=== PATIENT | male | born 1935 | race Two or more races ===

== ENCOUNTER 2024-09-12 16:56 | Inpatient (IN) | payer MEDICARE, MEDICAID ==
[~2024-09-12] VITALS: Ht 167.6 cm; Wt 65.2 kg
--- NOTE | 2024-09-12 17:56 | DVH ---
EXAM: XY L HIP COMPLETE XRAY CLINICAL HISTORY: fall COMPARISON: None TECHNIQUE: XY L HIP COMPLETE XRAY Findings/Impression: 2 views of the left hip with frontal view of the pelvis. There is no evidence of an acute fracture, dislocation, blastic, or lytic lesions. No radiopaque foreign bodies. No joint effusion or superficial soft tissue abnormalities.
--- NOTE | 2024-09-12 17:57 | DVH ---
EXAM: XY CHEST PORTABLE TECHNIQUE: Single frontal chest radiograph CLINICAL HISTORY: fall COMPARISON: None Findings/Impression: Frontal chest radiograph demonstrates no acute osseous or superficial soft tissue abnormalities. Recovery Engineer piter right rib fracuture deformities. The trachea is midline. The cardiac silhouette and mediastinum are within normal limits. No pneumothorax, pleural effusions, or consolidations.
--- NOTE | 2024-09-12 17:59 | ED.PDOC ---
Musculoskeletal HPI Comments 89y M who presents to the ED via EMS for fall injury. Per EMS, pt was standing and talking with family earlier this afternoon and states while pt was holding onto railing, pt slipped and fell to the floor. Pt fell on the L side of his hip to break his fall and states he did not lose consciousness during fall. Pt states since fall, he was able to get up and go to dinner table to eat. Pt after dinner, pt was unable to get up from sitting position and started to complain of L hip pain and EMS came to the scene. EMS states pt had stable vitals upon arrival and alert and oriented x 4. EMS states pt refused Tylenol prior to ED arrival. Pt otherwise denies any other symptoms at this time. Chief Complaint: Fall Injury Time Seen by MD: 17:43 Primary Care Provider: OO Reviewed Notes: Track Rider Notes, Medications, Allergies Allergies: Coded Allergies: NO KNOWN ALLERGIES (Unverified , 09/12/24) Information Source: Patient, Relative, Emergency Med Personnel Mode of Arrival: EMS Brought in by: EMS Location: Left Extremity Location: Hip Timing: Minutes, Hours Prehospital treatment: None Severity: Moderate Able to Move Extremity: No Bear Weight: No Pain: Moderate Mechanism: Spontaneous Circumstances: Fall Onset of Symptoms: Spontaneous, After Trauma Symptoms: Pain DVT Risk Factors: NONE Last Tetanus: Unknown Associated signs and symptoms: Hip pain Past Medical History PAST MEDICAL HISTORY: Arthritis, [place] Surgical History: Hernia Repair, PTCA Family History Family History: Family hx of heart nick Social History Smoker: Non-Smoker Alcohol: Denies ETOH Use Drugs: Denies Drug Use Lives In: Home Constitutional: denies: chills, diaphoresis, fatigue, fever, malaise, sweats, weakness, others EENTM: denies: blurred vision, double vision, ear bleeding, ear discharge, ear drainage, ear pain, ear ringing, eye pain, eye redness, hearing loss, mouth pain, mouth swelling, nasal discharge, nose bleeding, nose congestion, nose pain, photophobia, tearing, throat pain, throat swelling, voice changes, others Respiratory: denies: cough, hemoptysis, orthopnea, SOB at rest, shortness of breath, SOB with excertion, stridor, wheezing, others Cardiovascular: denies: chest pain, dizzy spells, diaphoresis, Dyspnea on exertion, edema, irregular heart beat, left arm pain, lightheadedness, palpitations, PND, syncope, others Gastrointestinal: denies: abdomen distended, abdominal pain, blood streaked bowels, constipated, diarrhea, dysphagia, difficulty swallowing, hematemesis, m dhruv, nausea, poor appetite, poor fluid intake, rectal bleeding, rectal pain, vomiting, others Genitourinary: denies: burning, dysuria, flank pain, frequency, hematuria, incontinence, penile discharge, penile sore, pain, testicle pain, testicle swelling, urgency, others Neurological: denies: dizziness, fainting, headache, left sided numbness, left sided weakness, numbness, paresthesia, pre-existing deficit, right sided numbness, right sided weakness, seizure, speech problems, tingling, tremors, weakness, others Musculoskeletal: reports: joint pain; denies: back pain, gout, joint swelling, muscle pain, muscle stiffness, neck pain, others Integumetry: denies: bruises, change in color, change in hair/nails, dryness, laceration, lesions, lumps, rash, wounds, others Allergic/Immunocompromised: denies: Difficulty Healing, Frequent Infections, Hives, Itching, others Hematologic/Lymphatic: denies: anemia, blood clots, easy bleeding, easy bruising, swollen glands, others Endocrine: denies: excessive hunger, excessive sweating, excessive thirst, excessive urination, flushing, intolerance to cold, intolerance to heat, unexplained weight gain, unexplained weight loss, others Psychiatric: denies: anxiety, bipolar disorder, depression, hopeless, panic disorder, schizophrenia, sleepless, suicidal, others All Other Systems: Reviewed and Negative Physical Exam General Appearance: Moderate Distress HEENT: Normal ENT Inspection, Pharynx Normal, TMs Normal Neck: Full Range of Motion, Non-Tender, Normal, Normal Inspection Respiratory: Chest Non-Tender, Lungs Clear, No Accessory Muscle Use, No R espiratory Distress, Normal Breath Sounds Cardiovascular: No Edema, No JVD, No Murmur, No Gallop, Normal Peripheral Pulses, Regular Rate/Rhythm Breast Exam: Deferred Gastrointestinal: No Organomegaly, Non Tender, No Pulsatile Mass, Normal Bowel Sounds, Soft Genitalia: Deferred Pelvic: Deferred Rectal: Deferred Extremities: No calf tenderness, Normal capillary refill, Normal inspection, Normal range of motion, Non-tender, No pedal edema Musculoskeletal : Location: Bilateral Extremity Location: Other (Pelvis tenderness) Apperance: Limited ROM, Tenderness: Moderate Neurologic: Alert, communications attendant II-XII nml as Tested, No Motor Deficits, Normal Affect, Normal Mood, No Sensory Deficits Cerebellar Function: Normal Reflexes: Normal Skin: Dry, Normal Color, Warm Lymphatic: No Adenopathy Was a procedure done? Was a procedure done?: No Differential Diagnosis EXT Differential Diagnosis: Fracture, Sprain, Dislocation, DJD, Contusion, Strain, Rheumatoid, Arthritis X-Ray, Labs, Meds, VS Vital Signs Date Time Temp Pulse Resp B/P (MAP) Pulse Ox O2 Delivery O2 Flow Rate FiO2 09/12/24 17:16 98.1 75 20 156/80 (105) 96 Lab Test 09/12/24 19:58 09/12/24 17:50 Range/Units Urine Color Pending Urine Clarity Pending Urine pH Pending Urine Specific [place] Pending Urine Protein Pending Urine Ketones Pending Urine Blood Pending Urine Nitrite Pending Urine Bilirubin Pending Urine Urobilinogen Pending Urine Leukocyte Esterase Pending Urine RBC Pending Urine Microscopic WBC Pending Urine Squamous Epithelial Cells Pending Urine Bacteria Pending Urine Glucose Pending White Blood Count 12.0 H 4.4-10.8 10^3/uL Red Blood Count 4.19 L 4.5-5.90 10^6/uL Hemoglobin 12.9 L 13.5-17.5 g/dL Hematocrit 39.7 L 41.0-53.0 % Mean Corpuscular Volume 94.8 80.0-100.0 fL Mean Corpuscular Hemoglobin 30.7 28.0-32.0 pg Mean Corpuscular Hemoglobin Concent 32.4 32.0-36.0 g/dL Red Cell Distribution Width 15.6 H 11.8-14.3 % Platelet Count 143 140-450 10^3/uL Mean Platelet Volume 11.0 H 6.9-10.8 fL Neutrophils (%) (Auto) 75.9 37.0-80.0 % Lymphocytes (%) (Auto) 13.5 10.0-50.0 % Monocytes (%) (Auto) 8.0 0.0-12.0 % Eosinophils (%) (Auto) 2.4 0.0-7.0 % Basophils (%) (Auto) 0.2 0.0-2.0 % Neutrophils # (Auto) 9.1 H 1.6-8.6 10 ^3/uL Lymphocytes # (Auto) 1.6 0.4-5.4 10 ^3/uL Monocytes # (Auto) 1.0 0-1.3 10 ^3/uL Eosinophils # (Auto) 0.3 0-0.8 10 ^3/uL Basophils # (Auto) 0 0-0.2 10 ^3/uL Nucleated Red Blood Cells 0.1 % Prothrombin Time 11.4 9.3-11.8 sec Prothrombin Time INR 1.08 0.9-1.15 Activated Partial Thromboplast Time 26.9 24.5-34.5 SEC Sodium Level 137 136-145 mmol/L Potassium Level 4.6 3.5-5.1 mmol/L Chloride Level 102 98-107 mmol/L Carbon Dioxide Level 28 20-31 mmol/L Anion Gap 7 5-15 Blood Urea Nitrogen 8 L 9-23 mg/dL Creatinine 1.00 0.700-1.30 mg/dL Glomerular Filtration Rate Calc 72 >90 mL/min BUN/Creatinine Ratio 8.0 L 10.0-20.0 Serum Glucose 123 H 74-106 mg/dL Calcium Level 9.6 8.7-10.4 mg/dL EXAM: XY L HIP COMPLETE XRAY Findings/Impression: 2 views of the left hip with frontal view of the pelvis. There is no evidence of an acute fracture, dislocation, blastic, or lytic lesions. No radiopaque foreign bodies. No joint effusion or superficial soft tissue abnormalities. EXAM: XY CHEST PORTABLE Findings/Impression: Frontal chest radiograph demonstrates no acute osseous or superficial soft tissue abnormalities. Chronic right rib fracuture deformities. The trachea is midline. The cardiac silhouette and mediastinum are within normal limits. No pneumothorax, pleural effusions, or consolidations. CT scan of the pelvis shows: IMPRESSION: 1. Minimally displaced fracture through the superior portion of the left acetabulum and inferior pubic ramus on the left. All CT scans at this medical facility are performed using dose modulation techniques as appropriate to a performed exam including the following: Automated exposure control was utilized; adjustment of the MA and/or KV according to patient size; and use of iterative reconstruction technique. HS:Y At this time, the patient was being admitted to the hospitalist The CBC shows an elevated white blood cell count of 12.0 The chemistry panel is within normal limits At this time, the patient was being admitted to the hospitalist Images Reviewed?: Images reviewed and evaluated by me Time of 1ST Reevaluation: 16:15 Reevaluation 1ST: Unchanged Patient Education/Counseling: Diagnosis, Treatment Family Education/Counseling: Diagnosis, Treatment Additional Information -Reviewed patient's previous visit(s): - The following tests were ordered, and results were reviewed by me:cbc,chest x-ray, ptptt, ua, bmp, ekg x1, L hip x-ray - Additional information was gathered from interviewing the following independent Historian: EMS - I reviewed and agreed with the following test results read by other provider: radiologist - I discussed treatments and results with medical personnel and: patient and family Comprehensive systems review obtained and negative except for what is stated in the HPI. Departure 1 Departure Time of Disposition: 20:36 Impression: Primary Impression: History of fall Additional Impression: Pelvic fracture Qualified Codes: S32.402A - Unspecified fracture of left acetabulum, initial encounter for closed fracture Disposition: ADMITTED INPATIENT Admit to: Med Surg Condition: Fair Critical Care Note Critical Care Time?: No Stability Stability form required: Yes Unstable for transfer: ED Physician Assesment (Clinical assesment) Heart Score Heart Score: Heart Score Response (Comments) Value History N/A 0 EKG N/A 0 Age N/A 0 Risk Factors N/A 0 Troponin N/A 0 Total 0 I personally scribed for RONNA AUGUSTE MD ([email or web address]) on 09/12/24 at 17:59. Electronically submitted by Lois Jay ([email or web address]). I personally scribed for RONNA AUGUSTE MD ([email or web address]) on 09/12/24 at 18:38. Electronically submitted by Lois Jay ([email or web address]). I personally scribed for RONNA AUGUSTE MD ([email or web address]) on 09/12/24 at 18:39. Electronically submitted by Lois TORRES). RONNA AUGUSTE MD Sep 12, 2024 17:59
[2024-09-12 18:26] LABS: Basophils # (auto) 0 10 ^3/uL (0-0.2); Basophils % (auto) 0.2 % (0.0-2.0); Eosinophils # (auto) 0.3 10 ^3/uL (0-0.8); Eosinophils % (auto) 2.4 % (0.0-7.0); Hematocrit 39.7 % (41.0-53.0); Hemoglobin 12.9 g/dL (13.5-17.5); Lymphocytes # (auto) 1.6 10 ^3/uL (0.4-5.4); Lymphocytes % (auto) 13.5 % (10.0-50.0); Mean Corpuscular Hemoglobin 30.7 pg (28.0-32.0); Mean Corpuscular Hgb Conc. 32.4 g/dL (32.0-36.0); Mean Corpuscular Volume 94.8 fL (80.0-100.0); Neutrophils # (auto) 9.1 10 ^3/uL (1.6-8.6); Neutrophils % (auto) 75.9 % (37.0-80.0); Nucleated Red Blood Cells % 0.1 %; Platelet Count (auto) 143 10^3/uL (140-450); Red Blood Cells 4.19 10^6/uL (4.5-5.90); Red Cell Distribution Width 15.6 % (11.8-14.3)
[2024-09-12 18:36] LABS: Chloride 102 mmol/L (98-107); Potassium 4.6 mmol/L (3.5-5.1); Sodium 137 mmol/L (136-145)
[2024-09-12 18:37] LABS: Anion Gap 7 (5-15); Calcium 9.6 mg/dL (8.7-10.4); Carbon Dioxide 28 mmol/L (20-31)
[2024-09-12 18:43] LABS: Blood Urea Nitrogen 8 mg/dL (9-23); Glucose 123 mg/dL (74-106)
[2024-09-12 19:20] LABS: INR 1.08 (0.9-1.15); Partial Thromboplastin Time 26.9 SEC (24.5-34.5); Prothrombin Time 11.4 sec (9.3-11.8)
--- NOTE | 2024-09-12 20:19 | DVH ---
Exam: CT PELVIS WO CONTRAST History: fall Comparison Study: None available at time of dictation. Technique: Multidetector CT of the pelvis was performed from iliac crests to pubic symphysis after th e administration of intravenous contrast was administered during this examination. Portal venous imag ing was obtained. Axial, coronal and sagittal multiplanar reformats were performed by the technologis t on a separate workstation. Radiation Dose : CT Dose: CTDI volume is 9.51 mGy. Dose-length product is 338.27 mGy*cm Findings: Visualized bowel: No bowel wall thickening or dilatation. Ascites: Absent Lymphadenopathy: No pelvic or mesenteric lymphadenopathy. Vasculature: The visualized abdominal aorta is normal in size and caliber. Abdominal and pelvic vesse ls demonstrate normal enhancement. Pelvic Organs: Unremarkable Musculoskeletal: Minimally displaced fracture of the superior portion of the left acetabulum and the inferior pubic ramus on the left. Bladder: Unremarkable Soft tissues: Unremarkable. IMPRESSION: 1. Minimally displaced fracture through the superior portion of the left acetabulum and inferior pubi c ramus on the left. All CT scans at this medical facility are performed using dose modulation techniques as appropriate t o a performed exam including the following: Automated exposure control was utilized; adjustment of th e MA and/or KV according to patient size; and use of iterative reconstruction technique. HS:Y
[2024-09-12 20:38] LABS: Urine Bacteria FEW /hpf (None Seen); Urine Blood Negative /uL (Negative); Urine Clarity Clear (Clear); Urine Color Light-Yellow (Yellow); Urine Protein, UAD Negative (Negative); Urine Specific Gravity 1.009 (1.001-1.035); Urine Squamous Epithelial Cell FEW /hpf (<5); Urine Urobilinogen Normal (Negative); Urine WBC 153 /HPF (0-3); Urine pH 5.5 (5.0-9.0)
[2024-09-12 21:59] VITALS: PULSE 76; RESP 18; O2SAT 99
[2024-09-12] MEDS: ONDANSETRON HCL 4 MG/2 ML VIAL IV ONE (22:07)
[2024-09-12] MEDS: MORPHINE SULFATE 4 MG/ML SYR/VIAL IV ONE (22:09)
[2024-09-12] MEDS: SODIUM CHLORIDE 0.9% 1,000 ML IV SCH (22:15)
[2024-09-12] MEDS ORDERED: NITROGLYCERIN 0.4 MG SL TAB SL PRN (22:15)
[2024-09-12] MEDS ORDERED: MORPHINE SULFATE INJ 2 MG/ml SYRG IV PRN ×2 (22:15)
[2024-09-12 23:55] LABS: INR 1.08 (0.9-1.15); Partial Thromboplastin Time 26.2 SEC (24.5-34.5); Prothrombin Time 11.4 sec (9.3-11.8)
--- NOTE | 2024-09-12 23:57 | DVH ---
CHEST RADIOGRAPH Indication: sob Technique: Single frontal view of the chest was obtained COMPARISON: XY CHEST PORTABLE on DOS: 09/12/24 FINDINGS: Lines and Tubes: None Lungs: Mild bibasilar subsegmental atelectasis/consolidation, progressed compared to the prior chest x-ray from earlier the same day. Pleura: No effusion. No pneumothorax. Cardiomediastinal contours: Unremarkable IMPRESSION: Mild bibasilar subsegmental atelectasis/consolidation, progressed compared to the prior chest x-ray f rom earlier the same day.
[2024-09-13] VITALS (7 sets, daily range): BP systolic 94–135; BP diastolic 44–70; PULSE 67–93; RESP 17–20; TEMP 97.2–98.1; O2SAT 93–97
--- NOTE | 2024-09-13 00:21 | DVHHPRES ---
History of Present Illness Resident Creating Document: CHANDA MINA RESIDENT History of Present Illness Fly Howell 89-year-old male with a PMH of BPH, CAD, PTCA 3 BERTIN, COPD presented to the ED accompanied by son with the chief complaints of mechanical fall without LOC. Patient reported today evening he tripped and fell on the left side of his hip. Patient states he was able to get up and go to dinner table to eat after eating he was unable to get up from the sitting position started complaining of severe pain in the left hip which prompted him to visit ED. on my assessment patient denies fever, nausea, vomiting, chest pain, abdominal pain, diaphoresis, and other acute associated symptoms. PMH: BPH, CAD, PTCA 3 BERTIN, COPD PSH: Hernia repair, PTCA Family history: Noncontributory Social history: Lives with family. Denies smoking, alcohol and other drug abuse Allergies: No known allergies Home medications: Amlodipine 5 mg, aspirin 81 mg, Lipitor 20 mg, cilostazol 50 mg, doxazosin 1 mg, gabapentin 100 mg, lisinopril- hydrochlorothiazide 20/12.5, metoprolol 50 mg, nitroglycerin 0.4 mg, pantoprazole 40 mg, albuterol inhaler Review of Systems Constitutional: No: Fever, Chills, Sweats, Weakness, Malaise, Other Eyes: No: Pain, Vision change, Conjunctivae inflammation, Eyelid inflammation, Other, Redness ENT: No: Ear pain, Ear discharge, Nose pain, Nose discharge, Nose congestion, Mouth pain, Mouth swelling, Throat pain, Throat swelling, Other Respiratory: No: Cough, Dry, Shortness of breath, SOB with excertion, Wheezing, Hemoptysis, Pleuritic Pain, Sputum, Wheezing, Other Cardiovascular: No: Chest Pain, Palpitations, Orthopnea, Paroxysmal Noc. Dyspnea, Edema, Lt Headedness, Other Gastrointestinal: No: Nausea, Vomiting, Abdominal Pain, Diarrhea, Constipation, Melena, Hematochezia, Other Genitourinary: Dysuria Musculoskeletal: other (Left hip pain) Skin: No: Rash, Lesions, Jaundice, Bruising, Other Neurological: No: Weakness, Numbness, Incoordination, Change in speech, Confusion, Seizures, Other Allergies: Coded Allergies: NO KNOWN ALLERGIES (Unverified , 09/12/24) Medications Current Medications Medications Dose Ordered Sig/Brenda Route Start Time Stop Time Status Last Admin Dose Admin Sodium Chloride 10 ml Q8HR IV 09/13/24 06:00 Sodium Chloride 1,000 ml @ 60 mls/hr [id number] IV 09/12/24 22:15 Acetaminophen/ Hydrocodone Bitart 1 tab Q4HP PRN PO 09/12/24 22:15 Enoxaparin Sodium 40 mg DAILY SC 09/13/24 10:00 Acetaminophen 650 mg Q6HP PRN PO 09/12/24 22:15 Morphine Sulfate 2 mg Q4HPRN PRN IV 09/12/24 22:15 Nitroglycerin 0.4 mg Q5MINP PRN SL 09/12/24 22:15 Morphine Sulfate 2 mg Q30M PRN IV 09/12/24 22:15 Pantoprazole Sodium 40 mg DAILY IV 09/13/24 10:00 Exam Vital Signs Vital Signs Date Time Temp Pulse Resp B/P (MAP) Pulse Ox O2 Delivery O2 Flow Rate FiO2 09/12/24 22:09 76 18 135/88 09/12/24 21:59 97.9 94 97.9 09/12/24 21:59 Room Air* 0 21 Exam General Appearance: Alert, Oriented X3, Cooperative, moderate distress HEENT: Atraumatic, Mucous membranes moist/pink Respiratory: Clear to auscultation, Normal air movement Cardiovascular: Regular rate, Normal S1, Normal S2 Abdominal: Active bowel sounds, Soft, no distention, no tenderness Extremities: No edema, Normal pulses, tenderness at left hip joint Skin: No Significant rash, except past surgical scars Neuro: Normal speech, sensorimotor deficits none Psych/Mental Status: Mental status NL, Mood NL Labs/Xrays Labs Test 09/12/24 23:16 09/12/24 19:58 09/12/24 17:50 Range/Units Prothrombin Time 11.4 9.3-11.8 sec Prothrombin Time INR 1.08 0.9-1.15 Activated Partial Thromboplast Time 26.2 24.5-34.5 SEC Lactic Acid Level 1.3 0.4-2.0 mmol/L Urine Color Light-yellow Yellow Urine Clarity Clear Clear Urine pH 5.5 5.0-9.0 Urine Specific [place] 1.009 1.001-1.035 Urine Protein Negative Negative Urine Ketones Negative Negative Urine Blood Negative Negative /uL Urine Nitrite Negative Negative Urine Bilirubin Negative Negative Urine Urobilinogen Normal Negative mg/dL Urine Leukocyte Esterase 3+ Negative /uL Urine RBC 3 0 - 3 /hpf Urine Microscopic WBC 153 H 0-3 /HPF Urine Squamous Epithelial Cells Few <5 /hpf Urine Bacteria Few H None Seen /hpf Urine Glucose Normal Normal mg/dL White Blood Count 12.0 H 4.4-10.8 10^3/uL Red Blood Count 4.19 L 4.5-5.90 10^6/uL Hemoglobin 12.9 L 13.5-17.5 g/dL Hematocrit 39.7 L 41.0-53.0 % Mean Corpuscular Volume 94.8 80.0-100.0 fL Mean Corpuscular Hemoglobin 30.7 28.0-32.0 pg Mean Corpuscular Hemoglobin Concent 32.4 32.0-36.0 g/dL Red Cell Distribution Width 15.6 H 11.8-14.3 % Platelet Count 143 140-450 10^3/uL Mean Platelet Volume 11.0 H 6.9-10.8 fL Neutrophils (%) (Auto) 75.9 37.0-80.0 % Lymphocytes (%) (Auto) 13.5 10.0-50.0 % Monocytes (%) (Auto) 8.0 0.0-12.0 % Eosinophils (%) (Auto) 2.4 0.0-7.0 % Basophils (%) (Auto) 0.2 0.0-2.0 % Neutrophils # (Auto) 9.1 H 1.6-8.6 10 ^3/uL Lymphocytes # (Auto) 1.6 0.4-5.4 10 ^3/uL Monocytes # (Auto) 1.0 0-1.3 10 ^3/uL Eosinophils # (Auto) 0.3 0-0.8 10 ^3/uL Basophils # (Auto) 0 0-0.2 10 ^3/uL Nucleated Red Blood Cells 0.1 % Sodium Level 137 136-145 mmol/L Potassium Level 4.6 3.5-5.1 mmol/L Chloride Level 102 98-107 mmol/L Carbon Dioxide Level 28 20-31 mmol/L Anion Gap 7 5-15 Blood Urea Nitrogen 8 L 9-23 mg/dL Creatinine 1.00 0.700-1.30 mg/dL Glomerular Filtration Rate Calc 72 >90 mL/min BUN/Creatinine Ratio 8.0 L 10.0-20.0 Serum Glucose 123 H 74-106 mg/dL Hemoglobin A1c 5.7 <5.7 % A1C Calcium Level 9.6 8.7-10.4 mg/dL Magnesium Level 2.0 1.6-2.6 mg/dL Thyroid Stimulating Hormone (TSH) 2.62 0.55-4.78 uIU/mL Assessment/Plan Assessment/Plan # Mechnical fall without LOC # left acetabulum and inferior pubic ramus fracture, closed, displaced -evident on hip CT and x-ray -pain management -consulted orthopedic surgeon # Acute complicated UTI - ordered urine bacterial culture - currently giving Rocephin # history of COPD not in exacerbation -resume home meds # H/O CAD, PTCA 3 BERTIN -resume home meds # Uncontrolled hypertension -resumed home meds Protonix Lovenox NPO Goals of care discussed with the patient for more than 29 minutes: Full code status Case discussed with Dr. Dalton, patient and nurse Plan discussed with: Patient, Son My Orders Orders - CHANDA MINA RESIDENT Procedure Category Date Status Time Admit ADMIT 09/12/24 Transmitted 22:03 Allergies FARHAD 09/12/24 In Process 22:03 Code Status CODE 09/12/24 Transmitted 22:03 Sodium Chloride Lock PHA 09/13/24 In Process (Saline Lock Ns) 06:00 Sodium Chloride 0.9% PHA 09/12/24 In Process 22:15 Hydrocodone-Acet PHA 09/12/24 In Process 5/325mg Tab ([place] 22:15 Enoxaparin Sodium PHA 09/13/24 In Process (Lovenox) 10:00 Complete Blood Count LAB 09/13/24 Logged 04:00 Comprehensive LAB 09/13/24 Logged Metabolic Panel 04:00 Npo (Nothing By DIET 09/13/24 Transmitted Mouth) Diet Breakfast Condition: Stable FARHAD 09/12/24 In Process 22:03 Acetaminophen Tablet PHA 09/12/24 In Process (Tylenol Tablet) 22:15 Morphine Sulfate PHA 09/12/24 In Process Injection 22:15 Nitroglycerin PHA 09/12/24 In Process Sublingual (Ntrostat 22:15 Morphine Sulfate PHA 09/12/24 In Process Injection 22:15 Oxygen By Nasal RT 09/12/24 Transmitted Cannula 22:03 Stat Ekg For Chest FARHAD 09/12/24 In Process Pain 22:03 Notify Of Changes FARHAD 09/12/24 In Process From Base 22:03 * Orthopedic Consult CONS 09/12/24 Transmitted 22:54 Chest Xray 1 View XY 09/12/24 Resulted 22:54 B-Type Natriuretic LAB 09/12/24 In Process Peptide 22:54 Covid19 Antigen [place] LAB 09/12/24 Logged Rapid Influenza A&B LAB 09/12/24 Logged 22:54 Pantoprazole PHA 09/13/24 In Process (Protonix) 10:00 Urine Bacterial LUZMA 09/13/24 In Process Culture 00:09 Ceftriaxone 1gm/50ml PHA 09/13/24 Logged D5w (Rocephin) 00:30 Ceftriaxone 1gm/50ml PHA 09/13/24 Logged D5w (Rocephin) 09:00 Date of Service: Sep 12, 2024 Billing Provider: CONCETTA DALTON MD Common Visit Codes: 97723-[id number] INP/OBS CARE (HIGH) Secondary Visit Codes: 55035-[id number] CARE PLAN 30 MINUTES CHANDA MINA RESIDENT Sep 13, 2024 00:21 CONCETTA DALTON MD Sep 14, 2024 08:43
[2024-09-13] MEDS: cefTRIAXone 1GM/50ML D5W 50 ML IV ONE (01:51)
[2024-09-13] MEDS: GABAPENTIN 100 MG CAP PO SCH (02:15)
[2024-09-13] MEDS: ATORVASTATIN 20 MG TAB PO ONE (02:15)
[2024-09-13] MEDS: HYDROcodone-ACET 5/325MG TAB PO PRN (02:16)
[2024-09-13 03:20] LABS: COVID19 ANTIGEN SOFIA FIA NEGATIVE (NEGATIVE); Rapid Influenza A Negative (Negative); Rapid Influenza B Negative (Negative)
[2024-09-13] MEDS: SODIUM CHLOR 0.9% PF (SALINE LOCK) 10ML VIAL/SYR IV SCH (06:36)
[2024-09-13 06:47] LABS: Basophils # (auto) 0 10 ^3/uL (0-0.2); Eosinophils # (auto) 0 10 ^3/uL (0-0.8); Eosinophils % (auto) 0.1 % (0.0-7.0); Hematocrit 36.5 % (41.0-53.0); Hemoglobin 11.7 g/dL (13.5-17.5); Lymphocytes # (auto) 1.5 10 ^3/uL (0.4-5.4); Mean Corpuscular Hemoglobin 30.7 pg (28.0-32.0); Mean Corpuscular Hgb Conc. 32.2 g/dL (32.0-36.0); Mean Corpuscular Volume 95.2 fL (80.0-100.0); Monocytes % (auto) 10.3 % (0.0-12.0); Neutrophils % (auto) 73.6 % (37.0-80.0); Platelet Count (auto) 118 10^3/uL (140-450); Red Blood Cells 3.83 10^6/uL (4.5-5.90); Red Cell Distribution Width 15.7 % (11.8-14.3); White Blood Cell 9.4 10^3/uL (4.4-10.8)
[2024-09-13 07:01] LABS: Albumin 3.7 g/dL (3.2-4.8); Alkaline Phosphatase 68 U/L (46-116); Anion Gap 8 (5-15); Aspartate Aminotransferase 16 U/L (13-40); BUN/Creatinine Ratio 9.9 (10.0-20.0); Blood Urea Nitrogen 10 mg/dL (9-23); Carbon Dioxide 26 mmol/L (20-31); Chloride 102 mmol/L (98-107); Potassium 4.6 mmol/L (3.5-5.1); Sodium 136 mmol/L (136-145)
[2024-09-13 07:02] LABS: Total Protein 6.1 g/dL (5.7-8.2)
[2024-09-13 07:04] LABS: Alanine Aminotransferase 9 U/L (7-40); Bilirubin, Total 1.4 mg/dL (0.2-1.0); Glucose 135 mg/dL (74-106)
[2024-09-13] MEDS ORDERED: AMLO1TAB22 PO (07:43)
[2024-09-13] MEDS ORDERED: ASPI-543 PO (07:46)
[2024-09-13] MEDS ORDERED: GABA-1308 PO (08:37)
[2024-09-13] MEDS ORDERED: CILO100T3 PO (08:37)
[2024-09-13] MEDS ORDERED: KETO0.0233 OP (08:37)
[2024-09-13] MEDS ORDERED: METO-6 PO (08:37)
[2024-09-13] MEDS ORDERED: ALBUAER3 IN (08:37)
[2024-09-13] MEDS ORDERED: LISI-706 PO (08:37)
[2024-09-13] MEDS ORDERED: DORZ1SOL3 OP (08:37)
[2024-09-13] MEDS ORDERED: BRIM0.1S3 OP (08:37)
[2024-09-13] MEDS ORDERED: PANT1INJ3 PO (08:37)
[2024-09-13] MEDS ORDERED: DOXA1TAB28 PO (08:37)
[2024-09-13] MEDS ORDERED: CIPR500T4 PO (08:37)
[2024-09-13] MEDS ORDERED: BECL80AE11 IN (08:37)
[2024-09-13] MEDS ORDERED: ATOR20TA50 PO (08:37)
[2024-09-13] MEDS ORDERED: NITR0.4S29 SL (08:39)
[2024-09-13] MEDS: LISINOPRIL 20 MG TAB PO SCH (09:14)
[2024-09-13] MEDS: ASPirin 81 mg TAB PO SCH (09:14)
[2024-09-13] MEDS: ENOXAPARIN SOD 40 MG/0.4 ML SYRINGE SC SCH (09:14)
[2024-09-13] MEDS: METOPROLOL SUCCINATE XL 50 MG TAB PO SCH (09:15)
[2024-09-13] MEDS: hydroCHLOROthiazide 25 MG TAB PO SCH (09:15)
[2024-09-13] MEDS: PANTOPRAZOLE 40 MG/10 ML VIAL INJ IV SCH (09:19)
--- NOTE | 2024-09-13 12:47 | DVHPN2 ---
Date of Progress Note Date of Progress Note Date of Progress Note: 09/13/24 Date of Admission Date of Admission Date of Admission: Date of Admission: Sep 12, 2024 at 22:03 Overnight Events Overnight events Overnight Events Pt otl pain on PO meds Past Medical History Past Medical History Past Medical History COPD Past Surgical History Past Surgical History Past Surgical History none declared Social History Social History Social History non contirbutory Allergies: Coded Allergies: NO KNOWN ALLERGIES (Unverified , 09/12/24) Home Meds Reported Medications Nitroglycerin (NTROSTAT SUBLINGUAL) 0.4 Mg Sl, 0.4 MG SL PRN for chest pain, #1 TAB *MAY REPEAT EVERY 5 MINUTES X 3 TOTAL IF NO RELIEF, INITIATE ANALGESIC THERAPY. NOTIFY PHYSICIAN *Do not crush. 09/13/24 Albuterol Sulfate (VENTOLIN MDI) 90 Mcg Ih, 90 MCG IN Q6HPRN PRN for wheezing, #2 PUFF 09/13/24 Pantoprazole Sodium (PANTOPRAZOLE SODIUM) 40 Mg Inj, 40 MG PO DAILY, #1 TAB 09/13/24 Metoprolol Succinate (Toprol Xl) 50 Mg Tab, 50 MG PO DAILY, #1 TAB 24hr/tablet 09/13/24 Lisinopril & Hydrochlorothiazi (Zestoretic 20-12.5 mg) 1 Tab Tab, 1 TAB PO DAILY, TAB 09/13/24 Ketotifen Fumarate (Ophth) (Zaditor) 0.035 % Mino, 0.025 % OP BID, #1 DROP Each eyes 09/13/24 Gabapentin (Gabapentin) 100 Mg Cap, 100 MG PO TID 09/13/24 Doxazosin Mesylate (Doxazosin Mesylate) 1 Mg Tab, 1 MG PO HS for 30 Days, MG 09/13/24 Dorzolamide HCl-Timolol Maleat (Cosopt 2-0.5 %) 1 Omega Omega, 1 OMEGA OP BID, #1 DROP Each eye 09/13/24 Ciprofloxacin Hcl (Ciprofloxacin Hcl) 500 Mg Tab, 500 MG PO Q12HR for 10 Days, MG 09/13/24 Cilostazol (Cilostazol) 100 Mg Tab, 50 MG PO BID for 30 Days, MG 09/13/24 Brimonidine Tartrate (Alphagan P) 0.1 % Omega, 0.2 % OP BID, #1 DROP Each eye 09/13/24 Beclomethasone Dipropionate (Qvar Redihaler) 80 Mcg/Act Aer, 80 MCG IN BID, #1 PUFF 09/13/24 Atorvastatin Calcium (ATORVASTATIN CALCIUM) 20 Mg Tab, 1 TAB PO HS, #30 TAB 5 Refills 09/13/24 Aspirin (Aspir-Low) 81 Mg Tab, 81 MG PO DAILY for 30 Days, MG 09/13/24 Amlodipine Besylate (Amlodipine Besylate) 5 Mg Tab, 5 MG PO DAILY for 30 Days, MG 09/13/24 Current Medications Current Medications Medications (Trade) Dose Ordered Sig/Brenda Route PRN Reason Start Time Stop Time Status Last Admin Sodium Chloride (Saline Lock Ns) 10 ml Q8HR IV 09/13/24 06:00 09/13/24 06:36 Sodium Chloride 1,000 ml @ 60 mls/hr [id number] IV 09/12/24 22:15 09/12/24 22:15 Acetaminophen/ Hydrocodone Bitart ([place] 5/325MG Tab) 1 tab Q4HP PRN PO MODERATE PAIN (4-6 PAIN SCALE) 09/12/24 22:15 09/13/24 02:16 Enoxaparin Sodium (Lovenox) 40 mg DAILY SC 09/13/24 10:00 09/13/24 09:14 Acetaminophen (Tylenol Tablet) 650 mg Q6HP PRN PO PAIN SCALE 1-3 OR TEMP>100.4 09/12/24 22:15 Morphine Sulfate 2 mg Q4HPRN PRN IV SEVERE PAIN (7-10 PAIN SCALE) 09/12/24 22:15 Nitroglycerin (Ntrostat Sublingual) 0.4 mg Q5MINP PRN SL FOR CHEST PAIN 09/12/24 22:15 Morphine Sulfate 2 mg Q30M PRN IV FOR CHEST PAIN 09/12/24 22:15 Pantoprazole Sodium (Protonix) 40 mg DAILY IV 09/13/24 10:00 09/13/24 09:19 Ceftriaxone Sodium 50 ml @ 100 mls/hr DAILY@09 IV 09/14/24 09:00 Aspirin 81 mg DAILY PO 09/13/24 10:00 09/13/24 09:14 Atorvastatin Calcium (Lipitor) 20 mg HS PO 09/13/24 22:00 Doxazosin Mesylate (Cardura Tablet) 1 mg HS PO 09/13/24 22:00 Gabapentin (Neurontin Capsule) 100 mg TID PO 09/13/24 00:30 09/13/24 06:36 Metoprolol Succinate (Toprol Xl) 50 mg DAILY PO 09/13/24 10:00 09/13/24 09:15 Lisinopril (Zestril Tablet) 20 mg DAILY PO 09/13/24 10:00 09/13/24 09:14 Hydrochlorothiazide (hydroCHLOROthiazide TABLET) 12.5 mg DAILY PO 09/13/24 10:00 09/13/24 09:15 Physical Examination General Examination: Last Vital sign Vital Signs Date Time Temp Pulse Resp B/P (MAP) Pulse Ox O2 Delivery O2 Flow Rate FiO2 09/13/24 09:15 120/72 09/13/24 09:15 88 09/13/24 09:00 97.2 19 94 97.2 09/13/24 08:00 Room Air* 0 21 General: General: No apparent distress, appears comfortable. Cooperative. HEENT: slow mentation, but able to answer questions with family translation Extremities: Left groin pain with PROM left LE, NVI Skin: intact Neurological Examination: Neurological Examination: Mental Status: Cranial Nerves: Motor Examination: Reflexes: Sensory: Coordination: Gait: NVI Labs: Labs: Laboratory Tests Test 09/12/24 17:50 09/12/24 19:58 09/12/24 23:16 09/13/24 01:50 Range/Units White Blood Count 12.0 H 4.4-10.8 10^3/uL Red Blood Count 4.19 L 4.5-5.90 10^6/uL Hemoglobin 12.9 L 13.5-17.5 g/dL Hematocrit 39.7 L 41.0-53.0 % Mean Corpuscular Volume 94.8 80.0-100.0 fL Mean Corpuscular Hemoglobin 30.7 28.0-32.0 pg Mean Corpuscular Hemoglobin Concent 32.4 32.0-36.0 g/dL Red Cell Distribution Width 15.6 H 11.8-14.3 % Platelet Count 143 140-450 10^3/uL Mean Platelet Volume 11.0 H 6.9-10.8 fL Neutrophils (%) (Auto) 75.9 37.0-80.0 % Lymphocytes (%) (Auto) 13.5 10.0-50.0 % Monocytes (%) (Auto) 8.0 0.0-12.0 % Eosinophils (%) (Auto) 2.4 0.0-7.0 % Basophils (%) (Auto) 0.2 0.0-2.0 % Neutrophils # (Auto) 9.1 H 1.6-8.6 10 ^3/uL Lymphocytes # (Auto) 1.6 0.4-5.4 10 ^3/uL Monocytes # (Auto) 1.0 0-1.3 10 ^3/uL Eosinophils # (Auto) 0.3 0-0.8 10 ^3/uL Basophils # (Auto) 0 0-0.2 10 ^3/uL Nucleated Red Blood Cells 0.1 % Prothrombin Time 11.4 11.4 9.3-11.8 sec Prothrombin Time INR 1.08 1.08 0.9-1.15 Activated Partial Thromboplast Time 26.9 26.2 24.5-34.5 SEC Sodium Level 137 136-145 mmol/L Potassium Level 4.6 3.5-5.1 mmol/L Chloride Level 102 98-107 mmol/L Carbon Dioxide Level 28 20-31 mmol/L Anion Gap 7 5-15 Blood Urea Nitrogen 8 L 9-23 mg/dL Creatinine 1.00 0.700-1.30 mg/dL Glomerular Filtration Rate Calc 72 >90 mL/min BUN/Creatinine Ratio 8.0 L 10.0-20.0 Serum Glucose 123 H 74-106 mg/dL Hemoglobin A1c 5.7 <5.7 % A1C Calcium Level 9.6 8.7-10.4 mg/dL Magnesium Level 2.0 1.6-2.6 mg/dL B-Type Natriuretic Peptide 38.19 0-100 pg/mL Thyroid Stimulating Hormone (TSH) 2.62 0.55-4.78 uIU/mL Urine Color Light-yellow Yellow Urine Clarity Clear Clear Urine pH 5.5 5.0-9.0 Urine Specific [place] 1.009 1.001-1.035 Urine Protein Negative Negative Urine Ketones Negative Negative Urine Blood Negative Negative /uL Urine Nitrite Negative Negative Urine Bilirubin Negative Negative Urine Urobilinogen Normal Negative mg/dL Urine Leukocyte Esterase 3+ Negative /uL Urine RBC 3 0 - 3 /hpf Urine Microscopic WBC 153 H 0-3 /HPF Urine Squamous Epithelial Cells Few <5 /hpf Urine Bacteria Few H None Seen /hpf Urine Glucose Normal Normal mg/dL Lactic Acid Level 1.3 0.4-2.0 mmol/L Influenza Type A Antigen Negative Negative Influenza Type B Antigen Negative Negative SARS-CoV-2 Antigen (Rapid) Negative NEGATIVE Test 09/13/24 05:43 Range/Units White Blood Count 9.4 4.4-10.8 10^3/uL Red Blood Count 3.83 L 4.5-5.90 10^6/uL Hemoglobin 11.7 L 13.5-17.5 g/dL Hematocrit 36.5 L 41.0-53.0 % Mean Corpuscular Volume 95.2 80.0-100.0 fL Mean Corpuscular Hemoglobin 30.7 28.0-32.0 pg Mean Corpuscular Hemoglobin Concent 32.2 32.0-36.0 g/dL Red Cell Distribution Width 15.7 H 11.8-14.3 % Platelet Count 118 L 140-450 10^3/uL Mean Platelet Volume 11.0 H 6.9-10.8 fL Neutrophils (%) (Auto) 73.6 37.0-80.0 % Lymphocytes (%) (Auto) 16.0 10.0-50.0 % Monocytes (%) (Auto) 10.3 0.0-12.0 % Eosinophils (%) (Auto) 0.1 0.0-7.0 % Basophils (%) (Auto) 0.0 0.0-2.0 % Neutrophils # (Auto) 7.0 1.6-8.6 10 ^3/uL Lymphocytes # (Auto) 1.5 0.4-5.4 10 ^3/uL Monocytes # (Auto) 1.0 0-1.3 10 ^3/uL Eosinophils # (Auto) 0 0-0.8 10 ^3/uL Basophils # (Auto) 0 0-0.2 10 ^3/uL Nucleated Red Blood Cells 0.0 % Sodium Level 136 136-145 mmol/L Potassium Level 4.6 3.5-5.1 mmol/L Chloride Level 102 98-107 mmol/L Carbon Dioxide Level 26 20-31 mmol/L Anion Gap 8 5-15 Blood Urea Nitrogen 10 9-23 mg/dL Creatinine 1.01 0.700-1.30 mg/dL Glomerular Filtration Rate Calc 72 >90 mL/min BUN/Creatinine Ratio 9.9 L 10.0-20.0 Serum Glucose 135 H 74-106 mg/dL Calcium Level 9.0 8.7-10.4 mg/dL Total Bilirubin 1.4 H 0.2-1.0 mg/dL Aspartate Amino Transferase (AST) 16 13-40 U/L Alanine Aminotransferase (ALT) 9 7-40 U/L Alkaline Phosphatase 68 46-116 U/L Total Protein 6.1 5.7-8.2 g/dL Albumin 3.7 3.2-4.8 g/dL Imaging Imaging: CT, non displaced left superior acetabluar rim farcture, concentric reduction hip Assessment/Plan Assessment/Plan Assessment and Plan:Fly Howell is a 89 year old male who presents with acetabluar rim fx, non-displaced 1) non surgical injury 2) PT WBAT with full assist 3) clear for dc from ortho view 4) follow up ortho clinic 2-3 wks Plan discussed with: Patient ALBINO VILLEGAS MD Sep 13, 2024 12:47
--- NOTE | 2024-09-13 14:26 | DVH ---
RENAL ULTRASOUND CLINICAL HISTORY: r/p pyelo hydronepphjrosis TECHNIQUE: Multiple ultrasound images of the kidneys and bladder were obtained. COMPARISON: None FINDINGS: The right kidney measures 8.4 cm in length. The left kidney measures 8.8 cm. Kidneys demonstrate appr opriate echotexture without evidence of nephrolithiasis or hydronephrosis. There are bilateral upper pole renal cysts, the largest in the left upper pole measuring 3.1 cm. Bladder appears within normal limits with prevoid volume measuring 157 cc. The prostate gland is enl arged with calculated volume of 85 cc. IMPRESSION: 1. There is no sonographic evidence of nephrolithiasis or hydronephrosis. 2. Bilateral renal cysts. 3. Prostatomegaly. HS:Y
--- NOTE | 2024-09-13 17:25 | DVHPNRES ---
Progress Note Date Seen: Sep 13, 2024 Resident Creating Document: ZHANNA CARROLL RESIDENT Medical Necessity Reason Pt with a Central, PICC or Fol: No Subjective Review of Systems Fly Howell 89-year-old male with a PMH of BPH, CAD, PTCA 3 BERTIN, COPD presented to the ED accompanied by son with the chief complaints of mechanical fall without LOC. Patient reported today evening he tripped and fell on the left side of his hip. Patient states he was able to get up and go to dinner table to eat after eating he was unable to get up from the sitting position started complaining of severe pain in the left hip which prompted him to visit ED. on my assessment patient denies fever, nausea, vomiting, chest pain, abdominal pain, diaphoresis, and other acute associated symptoms. PMH: BPH, CAD, PTCA 3 BERTIN, COPD PSH: Hernia repair, PTCA Family history: Noncontributory Social history: Lives with family. Denies smoking, alcohol and other drug abuse Allergies: No known allergies Home medications: Amlodipine 5 mg, aspirin 81 mg, Lipitor 20 mg, cilostazol 50 mg, doxazosin 1 mg, gabapentin 100 mg, lisinopril- hydrochlorothiazide 20/12.5, metoprolol 50 mg, nitroglycerin 0.4 mg, pantoprazole 40 mg, albuterol inhaler Patient seen and examined at the bedside. Orthopedics consulted, recommended conservative management. PT eval pending. Renal ultrasound shows prostatomegaly Objective vital signs Vital Sign Date Time Temp Pulse Resp B/P (MAP) Pulse Ox O2 Delivery O2 Flow Rate FiO2 09/13/24 13:00 97.3 71 19 124/60 (81) 95 97.3 09/13/24 08:00 Room Air* 0 21 Total Intake and Output 09/12/24 09/12/24 09/13/24 15:00 23:00 07:00 Intake Total 0 ml Balance 0 ml medications Current Medications Medications Dose Ordered Sig/Brenda Route Start Time Stop Time Status Last Admin Dose Admin Sodium Chloride 10 ml Q8HR IV 09/13/24 06:00 09/13/24 14:12 10 ML Sodium Chloride 1,000 ml @ 60 mls/hr [id number] IV 09/12/24 22:15 09/12/24 22:15 60 MLS/HR Acetaminophen/ Hydrocodone Bitart 1 tab Q4HP PRN PO 09/12/24 22:15 09/13/24 02:16 1 TAB Enoxaparin Sodium 40 mg DAILY SC 09/13/24 10:00 09/13/24 09:14 40 MG Acetaminophen 650 mg Q6HP PRN PO 09/12/24 22:15 Morphine Sulfate 2 mg Q4HPRN PRN IV 09/12/24 22:15 Nitroglycerin 0.4 mg Q5MINP PRN SL 09/12/24 22:15 Morphine Sulfate 2 mg Q30M PRN IV 09/12/24 22:15 Pantoprazole Sodium 40 mg DAILY IV 09/13/24 10:00 09/13/24 09:19 40 MG Ceftriaxone Sodium 50 ml @ 100 mls/hr DAILY@09 IV 09/14/24 09:00 Aspirin 81 mg DAILY PO 09/13/24 10:00 09/13/24 09:14 81 MG Atorvastatin Calcium 20 mg HS PO 09/13/24 22:00 Doxazosin Mesylate 1 mg HS PO 09/13/24 22:00 Gabapentin 100 mg TID PO 09/13/24 00:30 09/13/24 14:13 100 MG Metoprolol Succinate 50 mg DAILY PO 09/13/24 10:00 09/13/24 09:15 50 MG Lisinopril 20 mg DAILY PO 09/13/24 10:00 09/13/24 09:14 20 MG Hydrochlorothiazide 12.5 mg DAILY PO 09/13/24 10:00 09/13/24 09:15 12.5 MG Examination Patient lying in bed, in no acute distress General: Well-built, afebrile, palor, mucosae are moist Cardiovascular: Regular S1 and S2. No murmurs, gallops or rubs. No JVD elevation. No pedal edema Respiratory: Normal B/L air entry on room air. Clear lung sounds on auscultation Abdomen: Bilateral costovertebral tenderness. Soft, nontender, nondistended, normoactive bowel sounds, no rebound tenderness, no organomegaly, no masses Genitourinary: Deferred MSK/skin: Mobilizes 4 limbs. Skin is dry and warm Neurological: No motor, no sensitive deficits, normal speech. Pupils are isocoric and reactive. Psych/Mental Status: A/Ox3 laboratory and microbiology Laboratory Tests 09/13/24 05:43 Test 09/13/24 05:43 Range/Units Serum Glucose 135 H 74-106 mg/dL Labs and/or images reviewed: Labs reviewed by me, Image(s) reviewed by me Problem List/Assessment/Plan Problem List/Assessment/Plan # Mechnical fall without LOC # left acetabulum and inferior pubic ramus fracture, closed, displaced -evident on hip CT and x-ray -pain management -consulted orthopedic surgeon-recommended conservative management -physical therapy evaluation pending # Acute complicated UTI -bilateral costovertebral tenderness positive - ordered urine bacterial culture - currently giving Rocephin # history of COPD not in exacerbation -resume home meds # H/O CAD, PTCA 3 BERTIN -resume home meds # Uncontrolled hypertension -resumed home meds # benign prostatic hyperplasia -PSA ordered -started tamsulosin 0.4 mg daily Kidney ultrasound shows prostatomegaly # bilateral kidney cyst -monitor Protonix Lovenox Cardiac diet Goals of care discussed with the patient for more than 29 minutes: Full code status Case discussed with Dr. Jeff patient and nurse Plan discussed with: Patient, Son (At the bedside) My Orders My Orders Orders - ZHANNA CARROLL Procedure Category Date Status Time Kidney US 09/13/24 Resulted 12:36 Pt Request For Service PT 09/13/24 Logged 12:38 Regular Diet DIET 09/13/24 Transmitted Lunch ZHANNA CARROLL Sep 13, 2024 17:25
[2024-09-13] MEDS: ATORVASTATIN 20 MG TAB PO SCH (22:03)
[2024-09-13] MEDS: DOXAZOSIN MESYL 2 MG TAB PO SCH (22:08)
[2024-09-14] VITALS (14 sets, daily range): BP systolic 105–125; BP diastolic 45–72; PULSE 61–86; RESP 15–18; TEMP 98–99; O2SAT 95–100
[2024-09-14 06:03] LABS: Alkaline Phosphatase 57 U/L (46-116); Anion Gap 8 (5-15); BUN/Creatinine Ratio 12.9 (10.0-20.0); Blood Urea Nitrogen 12 mg/dL (9-23); Calcium 9.1 mg/dL (8.7-10.4); Carbon Dioxide 27 mmol/L (20-31); Chloride 104 mmol/L (98-107); Glucose 105 mg/dL (74-106); Potassium 4.3 mmol/L (3.5-5.1); Sodium 139 mmol/L (136-145)
[2024-09-14 06:04] LABS: Basophils # (auto) 0 10 ^3/uL (0-0.2); Basophils % (auto) 0.3 % (0.0-2.0); Eosinophils # (auto) 0.4 10 ^3/uL (0-0.8); Eosinophils % (auto) 6.4 % (0.0-7.0); Hematocrit 34.5 % (41.0-53.0); Hemoglobin 11.3 g/dL (13.5-17.5); Lymphocytes # (auto) 1.4 10 ^3/uL (0.4-5.4); Lymphocytes % (auto) 20.6 % (10.0-50.0); Mean Corpuscular Hemoglobin 31.1 pg (28.0-32.0); Mean Corpuscular Hgb Conc. 32.9 g/dL (32.0-36.0); Mean Corpuscular Volume 94.6 fL (80.0-100.0); Monocytes # (auto) 0.9 10 ^3/uL (0-1.3); Monocytes % (auto) 13.2 % (0.0-12.0); Neutrophils % (auto) 59.5 % (37.0-80.0); Platelet Count (auto) 107 10^3/uL (140-450); Red Blood Cells 3.64 10^6/uL (4.5-5.90); Red Cell Distribution Width 15.5 % (11.8-14.3); White Blood Cell 6.7 10^3/uL (4.4-10.8)
[2024-09-14 06:05] LABS: Albumin 3.4 g/dL (3.2-4.8); Aspartate Aminotransferase 14 U/L (13-40)
[2024-09-14 06:44] LABS: Alanine Aminotransferase < 9 U/L (7-40); Total Protein 5.7 g/dL (5.7-8.2)
[2024-09-14] MEDS: cefTRIAXone 1GM/50ML D5W 50 ML IV SCH (10:23)
[2024-09-14] MEDS ORDERED: ALBUTEROL SULF 2.5 MG/0.5ML(0.5%) NEB SOLN NEB SCH (11:15)
[2024-09-14] MEDS: FINASTERIDE 5 MG TAB PO SCH (12:10)
[2024-09-14] MEDS: DOCUSATE SOD 100 MG CAP PO PRN (13:14)
[2024-09-14] MEDS: ALBUTEROL SULF 2.5 MG/0.5ML(0.5%) NEB SOLN NEB SCH (14:50)
[2024-09-14] MEDS: LACTULOSE 20Gm/30ML SOLN PO ONE (15:23)
--- NOTE | 2024-09-14 15:30 | DVHPNRES ---
Progress Note Date Seen: Sep 14, 2024 Resident Creating Document: ZHANNA CARROLL RESIDENT Medical Necessity Reason Pt with a Central, PICC or Fol: No Subjective Review of Systems Fly Howell 89-year-old male with a PMH of BPH, CAD, PTCA 3 BERTIN, COPD presented to the ED accompanied by son with the chief complaints of mechanical fall without LOC. Patient reported today evening he tripped and fell on the left side of his hip. Patient states he was able to get up and go to dinner table to eat after eating he was unable to get up from the sitting position started complaining of severe pain in the left hip which prompted him to visit ED. on my assessment patient denies fever, nausea, vomiting, chest pain, abdominal pain, diaphoresis, and other acute associated symptoms. PMH: BPH, CAD, PTCA 3 BERTIN, COPD PSH: Hernia repair, PTCA Family history: Noncontributory Social history: Lives with family. Denies smoking, alcohol and other drug abuse Allergies: No known allergies Home medications: Amlodipine 5 mg, aspirin 81 mg, Lipitor 20 mg, cilostazol 50 mg, doxazosin 1 mg, gabapentin 100 mg, lisinopril- hydrochlorothiazide 20/12.5, metoprolol 50 mg, nitroglycerin 0.4 mg, pantoprazole 40 mg, albuterol inhaler 09/13-Patient seen and examined at the bedside. Orthopedics consulted, recommended conservative management. PT eval pending. Renal ultrasound shows prostatomegaly 09/14-patient seen and examined at the bedside. He is ambulatory with assistance. catering convention services manager consulted for home PT, walker and [id number] commode Objective vital signs Vital Sign Date Time Temp Pulse Resp B/P (MAP) Pulse Ox O2 Delivery O2 Flow Rate FiO2 09/14/24 13:00 98.4 76 16 121/72 (88) 96 98.4 09/13/24 20:00 Room Air* 0 21 Total Intake and Output 09/13/24 09/13/24 09/14/24 15:00 23:00 07:00 Intake Total 500 ml 700 ml Output Total 950 ml 550 ml Balance -450 ml 150 ml medications Current Medications Medications Dose Ordered Sig/Brenda Route Start Time Stop Time Status Last Admin Dose Admin Sodium Chloride 10 ml Q8HR IV 09/13/24 06:00 09/14/24 10:27 10 ML Acetaminophen/ Hydrocodone Bitart 1 tab Q4HP PRN PO 09/12/24 22:15 09/14/24 10:26 1 TAB Enoxaparin Sodium 40 mg DAILY SC 09/13/24 10:00 09/14/24 10:26 40 MG Acetaminophen 650 mg Q6HP PRN PO 09/12/24 22:15 Morphine Sulfate 2 mg Q4HPRN PRN IV 09/12/24 22:15 Nitroglycerin 0.4 mg Q5MINP PRN SL 09/12/24 22:15 Morphine Sulfate 2 mg Q30M PRN IV 09/12/24 22:15 Pantoprazole Sodium 40 mg DAILY IV 09/13/24 10:00 09/14/24 10:23 40 MG Ceftriaxone Sodium 50 ml @ 100 mls/hr DAILY@09 IV 09/14/24 09:00 09/14/24 10:23 100 MLS/HR Aspirin 81 mg DAILY PO 09/13/24 10:00 09/14/24 10:23 81 MG Atorvastatin Calcium 20 mg HS PO 09/13/24 22:00 09/13/24 22:03 20 MG Doxazosin Mesylate 1 mg HS PO 09/13/24 22:00 09/13/24 22:08 0.5 MG Gabapentin 100 mg TID PO 09/13/24 00:30 09/14/24 13:14 100 MG Metoprolol Succinate 50 mg DAILY PO 09/13/24 10:00 09/14/24 10:24 50 MG Lisinopril 20 mg DAILY PO 09/13/24 10:00 09/14/24 10:25 20 MG Hydrochlorothiazide 12.5 mg DAILY PO 09/13/24 10:00 09/14/24 10:25 12.5 MG Tamsulosin HCl 0.4 mg QPM PO 09/14/24 18:00 Finasteride 5 mg DAILY PO 09/14/24 10:00 09/14/24 12:10 5 MG Albuterol 2.5 mg Q4HR NEB 09/14/24 14:00 09/14/24 14:50 2.5 MG Lactulose 30 ml DAILY PO 09/15/24 10:00 Docusate Sodium 100 mg BIDPRN PRN PO 09/14/24 12:30 09/14/24 13:14 100 MG Examination Patient lying in bed, in no acute distress, ambulating with physical therapist General: Well-built, afebrile, palor, mucosae are moist Cardiovascular: Regular S1 and S2. No murmurs, gallops or rubs. No JVD elevation. No pedal edema Respiratory: Normal B/L air entry on room air. Clear lung sounds on auscultation Abdomen: Bilateral costovertebral tenderness. Soft, nontender, nondistended, normoactive bowel sounds, no rebound tenderness, no organomegaly, no masses Genitourinary: Deferred MSK/skin: Mobilizes 4 limbs. Skin is dry and warm Neurological: No motor, no sensitive deficits, normal speech. Pupils are isocoric and reactive. Psych/Mental Status: A/Ox3 laboratory and microbiology Laboratory Tests 09/14/24 05:13 Test 09/14/24 05:13 Range/Units Serum Glucose 105 74-106 mg/dL Microbiology Date/Time Source Procedure Growth Status 09/12/24 19:58 Voided Urine Urine Culture - Preliminary Resulted Labs and/or images reviewed: Labs reviewed by me, Image(s) reviewed by me Problem List/Assessment/Plan Problem List/Assessment/Plan # Mechnical fall without LOC # left acetabulum and inferior pubic ramus fracture, closed, displaced -evident on hip CT and x-ray -pain management -consulted orthopedic surgeon-recommended conservative management -patient ambulating with physical therapist, social science analyst consulted for home PT. # Acute complicated UTI -bilateral costovertebral tenderness positive - ordered urine bacterial culture - >100,000 CFU/mL Mixed Brittney - currently giving Rocephin starting 09/13 # history of COPD not in exacerbation -resume home meds # H/O CAD, PTCA 3 BERTIN -resume home meds # Uncontrolled hypertension -resumed home meds # benign prostatic hyperplasia -PSA ordered -started tamsulosin 0.4 mg daily, finasteride 5 mg daily Kidney ultrasound shows prostatomegaly # bilateral kidney cyst -monitor Protonix Lovenox Cardiac diet Plan discussed with patient, son present at bedside for over 20 minutes in which all questions have been answered Goals of care discussed with the patient for more than 29 minutes: Full code status Case discussed with Dr. Jeff patient and nurse Plan discussed with: Patient My Orders My Orders Orders - ZHANNA CARROLL RESIDENT Procedure Category Date Status Time Psa Total+% Free LAB 09/14/24 In Process 04:00 Urine Bacterial LUZMA 09/14/24 In Process Culture 07:22 Tamsulosin PHA 09/14/24 In Process Hydrochloride (Flomax) 18:00 Regular Diet DIET 09/14/24 Transmitted Lunch Finasteride Tablet PHA 09/14/24 In Process (Proscar Tablet) 10:00 * Rubber Flap Tuber Machine Operator CONS 09/14/24 Transmitted Consult Albuterol Medneb PHA 09/14/24 In Process (Ventolin Medneb) 14:00 Lactulose Oral PHA 09/15/24 In Process 10:00 Docusate Sodium PHA 09/14/24 In Process Capsule (Colace 12:30 * Rubber Flap Tuber Machine Operator CONS 09/14/24 Verified Consult ZHANNA CARROLL RESIDENT Sep 14, 2024 15:30
[2024-09-14] MEDS: TAMSULOSIN HYDROCHLORIDE 0.4 MG CAP PO SCH (19:07)
[2024-09-15] VITALS (11 sets, daily range): BP systolic 109–130; BP diastolic 53–64; PULSE 65–88; RESP 18–20; TEMP 36.4; O2SAT 95–100
[2024-09-15] MEDS: ACETAMINOPHEN 325 MG TAB PO PRN (05:31)
[2024-09-15 09:07] LABS: PSA Free 0.28 ng/mL; Prostate Specific Antigen 1.3 ng/mL (0.0-4.0)
[2024-09-15] MEDS: LACTULOSE 20Gm/30ML SOLN PO SCH (10:00)
[2024-09-15] MEDS ORDERED: BACDST PO (12:12)
--- NOTE | 2024-09-15 12:55 | DVHDSRES ---
Discharge Summary Date of Admission Resident Creating Document: ZHANNA CARROLL RESIDENT Sep 12, 2024 at 22:03 Date of Discharge: Sep 15, 2024 Admitting Diagnosis Mechanical fall with loss of consciousness, rule out TIA, fracture, intracranial hemorrhage Labs/Diagnostic Data: Laboratory Results Test 09/14/24 05:13 09/13/24 01:50 09/12/24 23:16 09/12/24 19:58 White Blood Count 6.7 10^3/uL (4.4-10.8) Red Blood Count 3.64 10^6/uL (4.5-5.90) Hemoglobin 11.3 g/dL (13.5-17.5) Hematocrit 34.5 % (41.0-53.0) Mean Corpuscular Volume 94.6 fL (80.0-100.0) Mean Corpuscular Hemoglobin 31.1 pg (28.0-32.0) Mean Corpuscular Hemoglobin Concent 32.9 g/dL (32.0-36.0) Red Cell Distribution Width 15.5 % (11.8-14.3) Platelet Count 107 10^3/uL (140-450) Mean Platelet Volume 10.9 fL (6.9-10.8) Neutrophils (%) (Auto) 59.5 % (37.0-80.0) Lymphocytes (%) (Auto) 20.6 % (10.0-50.0) Monocytes (%) (Auto) 13.2 % (0.0-12.0) Eosinophils (%) (Auto) 6.4 % (0.0-7.0) Basophils (%) (Auto) 0.3 % (0.0-2.0) Neutrophils # (Auto) 4.0 10 ^3/uL (1.6-8.6) Lymphocytes # (Auto) 1.4 10 ^3/uL (0.4-5.4) Monocytes # (Auto) 0.9 10 ^3/uL (0-1.3) Eosinophils # (Auto) 0.4 10 ^3/uL (0-0.8) Basophils # (Auto) 0 10 ^3/uL (0-0.2) Nucleated Red Blood Cells 0.0 % Sodium Level 139 mmol/L (136-145) Potassium Level 4.3 mmol/L (3.5-5.1) Chloride Level 104 mmol/L (98-107) Carbon Dioxide Level 27 mmol/L (20-31) Anion Gap 8 (5-15) Blood Urea Nitrogen 12 mg/dL (9-23) Creatinine 0.93 mg/dL (0.700-1.30) Glomerular Filtration Rate Calc 79 mL/min (>90) BUN/Creatinine Ratio 12.9 (10.0-20.0) Serum Glucose 105 mg/dL (74-106) Calcium Level 9.1 mg/dL (8.7-10.4) Total Bilirubin 2.0 mg/dL (0.2-1.0) Aspartate Amino Transferase (AST) 14 U/L (13-40) Alanine Aminotransferase (ALT) < 9 U/L (7-40) Alkaline Phosphatase 57 U/L (46-116) Total Protein 5.7 g/dL (5.7-8.2) Albumin 3.4 g/dL (3.2-4.8) Free Prostate Specific Antigen 0.28 ng/mL (N/A) Percent Free Prostate Specific Ag 21.5 % (.) Prostate Specific Antigen Total 1.3 ng/mL (0.0-4.0) Influenza Type A Antigen Negative (Negative) Influenza Type B Antigen Negative (Negative) SARS-CoV-2 Antigen (Rapid) Negative (NEGATIVE) Prothrombin Time 11.4 sec (9.3-11.8) Prothrombin Time INR 1.08 (0.9-1.15) Activated Partial Thromboplast Time 26.2 SEC (24.5-34.5) Lactic Acid Level 1.3 mmol/L (0.4-2.0) Urine Color Light-yellow (Yellow) Urine Clarity Clear (Clear) Urine pH 5.5 (5.0-9.0) Urine Specific Ramer 1.009 (1.001-1.035) Urine Protein Negative (Negative) Urine Ketones Negative (Negative) Urine Blood Negative /uL (Negative) Urine Nitrite Negative (Negative) Urine Bilirubin Negative (Negative) Urine Urobilinogen Normal mg/dL (Negative) Urine Leukocyte Esterase 3+ /uL (Negative) Urine RBC 3 /hpf (0 - 3) Urine Microscopic WBC 153 /HPF (0-3) Urine Squamous Epithelial Cells Few /hpf (<5) Urine Bacteria Few /hpf (None Seen) Urine Glucose Normal mg/dL (Normal) Test 09/12/24 17:50 Hemoglobin A1c 5.7 % A1C (<5.7) Magnesium Level 2.0 mg/dL (1.6-2.6) B-Type Natriuretic Peptide 38.19 pg/mL (0-100) Thyroid Stimulating Hormone (TSH) 2.62 uIU/mL (0.55-4.78) Other Laboratory Tests 09/14/24 05:13 Brief Hx & Hospital Course: HPI-Fly Howell 89-year-old male with a PMH of BPH, CAD, PTCA 3 BERTIN, COPD presented to the ED accompanied by son with the chief complaints of mechanical fall without LOC. Patient reported today evening he tripped and fell on the left side of his hip. Patient states he was able to get up and go to dinner table to eat after eating he was unable to get up from the sitting position started complaining of severe pain in the left hip which prompted him to visit ED. on my assessment patient denies fever, nausea, vomiting, chest pain, abdominal pain, diaphoresis, and other acute associated symptoms. Hospital course-patient with a complaint of mechanical fall with loss of consciousness. Patient was admitted with the hospital due to mechanical fall with loss of consciousness, rule out acute fracture, TIA or stroke, intracranial hemorrhage. Initial lab workup revealed leukocytosis with WBC 12.0, mildly elevated bilirubin> 1.4 2.0. Urinalysis revealed leukocyte esterase 3+, WBC 153, bacteria few. Urine culture preliminary report revealed coliform bacteria. CT pelvis revealed Minimally displaced fracture through the superior portion of the left acetabulum and inferior pubic ramus on the left. Renal ultrasound revealed-2. Bilateral renal cysts.3. Prostatomegaly. Patient was seen by orthopedic surgeon. Recommended nonsurgical injury, recommended for PT with WBAT with full assist. Patient was evaluated by Physical therapy, recommended home health with the physical therapy. Patient is being discharged home with home health. Patient was prescribed Bactrim DS 1 tab b.i.d. by mouth for 7 days. Patient was advised to follow up with the urine culture report in 1 week. Also patient was advised to follow up with the orthopedic surgeon in 2-3 weeks for further evaluation and care of nondisplaced left superior acetabulum rim fracture. Patient's meds were sent to the pharmacy electronically. Patient is bed-bound. Due to patient's age and and recurrent fall patient is at risk of bleeding. Patient and family was advised to use compression socks or device to avoid DVT. Patient was hemodynamically stable on discharge. Diagnosis # Mechnical fall without LOC # left acetabulum and inferior pubic ramus fracture, closed, displaced # Acute complicated UTI -bilateral costovertebral tenderness positive # history of COPD not in exacerbation # H/O CAD, PTCA 3 BERTIN # Uncontrolled hypertension # benign prostatic hyperplasia # bilateral kidney cyst Discharge pain Continue Bactrim DS 1 tab b.i.d. for 7 days Resume home medications Please follow up with the primary care physician in 1 week with a report of urine culture sensitivity Please follow up with the orthopedic doctor in 2-3 weeks Fall precaution Patient and family was advised to use compression device to avoid blood clot in the leg Operations or Procedures [place] [id number] Ph: [phone] DIAGNOSTIC IMAGING Diagnostic Imaging Report : [id number] Signed PATIENT: FLY HOWELL ACCT: [id number] UNIT: [id number] : 1935 LOC: ER ROOM / BED: / AGE / SEX: 89 / M ADM STATUS: REG ER SERVICE 171 ORDERING PHYSICIAN: RONNA AUGUSTE MD PROCEDURE(s): CXRP - CHEST PORTABLE REASON: fall ORDER NUMBER(s): [id number], ACCESSION NUMBER(s): [id number] EXAM: XY CHEST PORTABLE TECHNIQUE: Single frontal chest radiograph CLINICAL HISTORY: fall COMPARISON: None Findings/Impression: Frontal chest radiograph demonstrates no acute osseous or superficial soft tissue abnormalities. Chronic right rib fracuture deformities. The trachea is midline. The cardiac silhouette and mediastinum are within normal limits. No pneumothorax, pleural effusions, or consolidations. ATED BY: IVA BAIN DO DICTATED DATE/TIME: 09/12/241753 SIGNED BY: IVA BAIN DO SIGNED DATE/TIME: 09/12/241753 CC: [place] [id number] Ph: [phone] DIAGNOSTIC IMAGING Diagnostic Imaging Report : [id number] Signed PATIENT: FLY HOWELL ACCT: [id number] UNIT: [id number] : 1935 LOC: ER ROOM / BED: / AGE / SEX: 89 / M ADM STATUS: REG ER SERVICE 1710 ORDERING PHYSICIAN: RONNA AUGUSTE MD PROCEDURE(s): LHIP - L HIP COMPLETE XRAY REASON: fall ORDER NUMBER(s): [id number], ACCESSION NUMBER(s): [id number] EXAM: XY L HIP COMPLETE XRAY CLINICAL HISTORY: fall COMPARISON: None TECHNIQUE: XY L HIP COMPLETE XRAY Findings/Impression: 2 views of the left hip with frontal view of the pelvis. There is no evidence of an acute fracture, dislocation, blastic, or lytic lesions. No radiopaque foreign bodies. No joint effusion or superficial soft tissue abnormalities. ATED BY: IVA BAIN DO DICTATED DATE/TIME: 09/12/241752 SIGNED BY: IVA BAIN DO SIGNED DATE/TIME: 09/12/241752 CC: [place] [address] Ph: [phone] DIAGNOSTIC IMAGING Diagnostic Imaging Report : [id number] Signed PATIENT: FLY HOWELL ACCT: [id number] UNIT: [id number] : 1935 LOC: ER ROOM / BED: / AGE / SEX: 89 / M ADM STATUS: REG ER SERVICE 1928 ORDERING PHYSICIAN: RONNA AUGUSTE MD PROCEDURE(s): PL2CT - PELVIS WO CONTRAST REASON: fall ORDER NUMBER(s): [id number], ACCESSION NUMBER(s): [id number] Exam: CT PELVIS WO CONTRAST History: fall Comparison Study: None available at time of dictation. Technique: Multidetector CT of the pelvis was performed from iliac crests to pubic symphysis after the administration of intravenous contrast was administered during this examination. Portal venous imaging was obtained. Axial, coronal and sagittal multiplanar reformats were performed by the technologist on a separate workstation. Radiation Dose : CT Dose: CTDI volume is 9.51 mGy. Dose-length product is 338.27 mGy*cm Findings: Visualized bowel: No bowel wall thickening or dilatation. Ascites: Absent Lymphadenopathy: No pelvic or mesenteric lymphadenopathy. Vasculature: The visualized abdominal aorta is normal in size and caliber. Abdominal and pelvic vessels demonstrate normal enhancement. Pelvic Organs: Unremarkable Musculoskeletal: Minimally displaced fracture of the superior portion of the left acetabulum and the inferior pubic ramus on the left. Bladder: Unremarkable Soft tissues: Unremarkable. IMPRESSION: 1. Minimally displaced fracture through the superior portion of the left acetabulum and inferior pubic ramus on the left. All CT scans at this medical facility are performed using dose modulation techniques as appropriate to a performed exam including the following: Automated exposure control was utilized; adjustment of the MA and/or KV according to patient size; and use of iterative reconstruction technique. HS:Y ATED BY: ALBINO BREEN Jr., DO DICTATED DATE/TIME: 09/12/242016 SIGNED BY: ALBINO BREEN Jr., DO SIGNED DATE/TIME: 09/12/242016 CC: [place] [address] Ph: [phone] DIAGNOSTIC IMAGING Diagnostic Imaging Report : [id number] Signed PATIENT: FLY HOWELL ACCT: [id number] UNIT: [id number] : 1935 LOC: CENTRAL ROOM / BED: [facility] / A AGE / SEX: 89 / M ADM STATUS: ADM IN SERVICE 1236 ORDERING PHYSICIAN: ZHANNA CARROLL RESIDENT PROCEDURE(s): KIDUS - KIDNEY REASON: r/p pyelo hydronepphjrosis ORDER NUMBER(s): [id number], ACCESSION NUMBER(s): [id number] RENAL ULTRASOUND CLINICAL HISTORY: r/p pyelo hydronepphjrosis TECHNIQUE: Multiple ultrasound images of the kidneys and bladder were obtained. COMPARISON: None FINDINGS: The right kidney measures 8.4 cm in length. The left kidney measures 8.8 cm. Kidneys demonstrate appropriate echotexture without evidence of nephrolithiasis or hydronephrosis. There are bilateral upper pole renal cysts, the largest in the left upper pole measuring 3.1 cm. Bladder appears within normal limits with prevoid volume measuring 157 cc. The prostate gland is enlarged with calculated volume of 85 cc. IMPRESSION: 1. There is no sonographic evidence of nephrolithiasis or hydronephrosis. 2. Bilateral renal cysts. 3. Prostatomegaly. HS:Y ATED BY: JAMSHID RODRIGUEZ MD DICTATED DATE/TIME: 09/13/241423 SIGNED BY: JAMSHID RODRIGUEZ MD SIGNED DATE/TIME: 09/13/24 142 CC: Condition at Discharge: Stable Final Diagnosis/Problems List # Mechnical fall without LOC # left acetabulum and inferior pubic ramus fracture, closed, displaced # Acute complicated UTI -bilateral costovertebral tenderness positive # history of COPD not in exacerbation # H/O CAD, PTCA 3 BERTIN # Uncontrolled hypertension # benign prostatic hyperplasia # bilateral kidney cyst Discharge Disposition: Home with Health Services Discharge Instruct/Medications Diet: Cardiac 2g Na,low cholest Activity: See Comment Activity comment: As per physical therapy recommendation Follow Up/Referral: Please follow up with the primary care physician in 1 week with a report of urine culture sensitivity Please follow up with the orthopedic doctor in 2-3 weeks Fall precaution Patient and family was advised to use compression device to avoid blood clot in the leg Medications: Bactrim DS 1 tab 2 times a day for 7 days Please resume other home medications Discharge Statement: "Patient was advised to return to the ER or call 911 if any headaches, dizziness, shortness of breath, chest pain, abdominal pain, bleeding, fevers, or worsening of medical condition. Patient was counseled about treatment plan, medications, possible side effects, patientverbalized understanding. All questions were answered to the best of my ability. This discharge took greater then 30 minutes in planning, reviewing documentation, counseling the patient, and discussing with other team members." ASSESSMENT ASSESSMENT Assessment # Mechnical fall without LOC # left acetabulum and inferior pubic ramus fracture, closed, displaced # Acute complicated UTI -bilateral costovertebral tenderness positive TOMÁS REES RESIDENT Sep 15, 2024 12:55
== END 2024-09-15 14:42 | disposition home health service (06) | DRG 535 ==
LOC: ER 16:56 → EDBD 16:56 → OVERFLOW 22:03 → CENTRAL 09-13 03:50
PROVIDERS: ADMIT Student in an Organized Health Care Education/Training Program; ATTEND Student in an Organized Health Care Education/Training Program
DX: S32.592A Other specified fracture of left pubis, initial encounter for closed fracture (principal); S32.492A Other specified fracture of left acetabulum, initial encounter for closed fracture; N39.0 Urinary tract infection, site not specified; N28.1 Cyst of kidney, acquired; I10 Essential (primary) hypertension; Z20.822 Contact with and (suspected) exposure to COVID-19; N40.1 Benign prostatic hyperplasia with lower urinary tract symptoms; J44.9 Chronic obstructive pulmonary disease, unspecified; I25.10 Atherosclerotic heart disease of native coronary artery without angina pectoris; Z95.5 Presence of coronary angioplasty implant and graft; Z79.82 Long term (current) use of aspirin; Z79.899 Other long term (current) drug therapy; Z79.51 Long term (current) use of inhaled steroids; W18.39XA Other fall on same level, initial encounter; Y93.89 Activity, other specified; Y92.89 Other specified places as the place of occurrence of the external cause; Y99.8 Other external cause status
CPT/HCPCS: 36415; 71045; 72192; 73502; 76775; 80048; 80053; 81001; 83036; 83605; 83735; 83880; 84154; 84443; 85025; 85610; 85730; 87086; 87088; 87186; 87426; 87804; 94640; 96374; 96375; 97110; 97116; 97163; G0378; J2405; J2470